=== PATIENT | female | born 1940 | race Caucasian/White ===

== ENCOUNTER 2017-08-23 16:01 | Emergency (ER) | payer MEDICARE ==
[~2017-08-23] VITALS: Ht 162.6 cm; Wt 59.0 kg
--- OUTSIDE RECORDS SUMMARY | 2017-08-23 16:04 | XMS REPORT | Summary of Care ---
Author Author NAUN DENT M.D. Organization Unknown Address Unknown Phone Unavailable Care Team Providers Care Air Traffic Control Specialist Name Role Phone NAUN DENT M.D. Unavailable Unavailable Unavailable Unavailable Functional Status Name Dates Details Functional status health issues are not documented Status: Name Dates Details Cognitive status health issues are not documented Status: Problems Name Dates Details Femur fracture, right (821.00, S72.91XA) Status: Active Ankle pain (719.47, M25.579) Status: Active Medications Name Dates Details Gabapentin 300 MG Oral Capsule TAKE 1 CAPSULE AT BEDTIME. Quantity: 30 JAILENE Holland, NAUN * Start : 15-Mar-2017 Active Allergies and Adverse Reactions Name Dates Details Allergy history not documented Status: Procedures Procedure Dates Details [U] XRAY HIP UNILATERAL MIN 2 VWS RIGHT [id number] Date: 13-Jun-2017 Immunization Name Dates Details Immunizations not documented Social History Name Dates Details Unknown if ever smoked Vital Signs Date Test Result Details No Known Vitals to report Results Date Description Value Details Results not documented Plan of Care Name Dates Details Planned Observations Planned Goals not documented Interventions Provided Labs/Procedures/Imaging* [U] XRAY HIP UNILATERAL MIN 2 VWS RIGHT [id number]; To Be Done: 14 Jun 2017 Instructions Name Dates Details Instructions not documented Encounters Appointment; NAUN DENT M.D. Encounter Diagnosis: Problem not documented On: 09-Jan-2017 15:30 Appointment; NAUN DENT M.D. Encounter Diagnosis: Problem not documented On: 15-Feb-2017 13:00 Appointment; NAUN DENT M.D. Encounter Diagnosis: Problem not documented On: 15-Mar-2017 13:15 Appointment; NAUN DENT M.D. Encounter Diagnosis: Problem not documented On: 14-Jun-2017 13:15
== END 2017-08-23 17:12 | disposition left against medical advice (07) ==
LOC: ER 16:01
DX: R06.02 Shortness of breath (principal)

== ENCOUNTER 2018-01-08 14:07 | Observation (INO) | payer MEDICARE ==
[~2018-01-08] VITALS: Ht 162.6 cm; Wt 67.6 kg
[2018-01-08] MEDS ORDERED: ARICEPT5 MG PO (16:52)
[2018-01-08] MEDS ORDERED: GABAPENTIN300 MG PO (16:52)
[2018-01-08] MEDS ORDERED: Eliquis PO (16:52)
[2018-01-08] MEDS ORDERED: ATORVASTATIN CA20 MG PO (16:52)
[2018-01-08] MEDS ORDERED: CARVEDILOL12.5 MG PO (16:52)
[2018-01-08] MEDS ORDERED: FUROSEMIDE40 MG PO (16:52)
[2018-01-08] MEDS ORDERED: AMIODARONE HCL200 MG PO (16:52)
[2018-01-08] MEDS ORDERED: ASPIRIN81 MG PO (16:52)
[2018-01-08] MEDS ORDERED: SERTRALINE HCL100 MG PO (16:52)
[2018-01-08] MEDS ORDERED: ASPIRIN ENTERI325 MG PO (16:52)
[2018-01-08] MEDS ORDERED: LEVOCETIRIZINE D5 MG PO (16:52)
[2018-01-08] MEDS ORDERED: PRILOSEC OTC20 MG PO (16:52)
[2018-01-08] MEDS ORDERED: OMEPRAZOLE40 MG PO (16:52)
[2018-01-08] MEDS ORDERED: SODIUM CHLORIDE FLUSH 10 ML SYR INJ PRN (18:45)
[2018-01-09] VITALS (8 sets, daily range): BP systolic 106–146; BP diastolic 59–68
[2018-01-09] MEDS ORDERED: NON-FORMULARY MEDICATION (Omeprazole Magnesium (Prilosec Otc) 20 MG) PO SCH (09:00)
[2018-01-09] MEDS ORDERED: ASPIRIN 81 MG CHEW TAB PO SCH (09:00)
[2018-01-09] MEDS ORDERED: APIXABAN 5 MG TABLET PO SCH (09:00)
[2018-01-09] MEDS: CARVEDILOL 12.5 MG TAB PO SCH ×2 (09:42→17:34)
[2018-01-09] MEDS: ASPIRIN 325 MG TAB EC PO SCH (09:42)
[2018-01-09] MEDS: AMIODARONE HCL 200 MG TAB PO SCH ×2 (09:42→17:34)
[2018-01-09] MEDS: FUROSEMIDE 40 MG TAB PO SCH (09:43)
[2018-01-09] MEDS: APIXAB 2.5 MG TABLET PO SCH ×2 (09:43→17:34)
[2018-01-09] MEDS: GABAPENTIN 300 MG CAP PO SCH (09:43)
[2018-01-09] MEDS: PANTOPRAZOLE SOD 40 MG TABEC PO SCH (09:43)
[2018-01-09] MEDS ORDERED: DEXTROSE 50% SYRINGE 50 ML IV PRN (18:00)
--- NOTE | 2018-01-09 18:36 | History and Physical ---
This is a 77-year-old female who comes in with back pain. HISTORY OF PRESENT ILLNESS: Ms. Jie Beaver, a 77-year-old female with a history of CHF, history of hypertension, history of debility and chronic pain was in her usual state of health until the patient started to have pain in the back. The intensity is 8 out of 10 to 9 out of 10. The patient's daughter apparently gave her 2 [place] and came into the emergency room and was found to have pinpoint pupils. Her CT scan did show L4, L5 spondylosis with probable stenosis, and the patient was admitted for observation. PAST MEDICAL HISTORY: History of hypertension, history of diabetes mellitus, history of hyperlipidemia, history of dementia, history of congestive heart failure, history of hypothyroidism. The patient has had a dual-chamber pacemaker, AICD placement, and also right femur surgery. HOME MEDICATIONS: Carvedilol 12.5 mg, amiodarone 100 mg once a day, furosemide 40 mg mg once a day, aspirin 325 mg, atorvastatin 40 mg, gabapentin 300 mg, omeprazole 40 mg, sertraline 100 mg, 5 mg, donepezil 10 mg and Eliquis 2.5 mg twice a day. SOCIAL HISTORY: No ETOH, no IV drug abuse. She lives with daughter who is the primary packaging technician. REVIEW OF SYSTEMS: Negative for chest pain. Positive for some shortness of breath. No nausea, vomiting, diarrhea, no constipation, no rectal bleeding. No hematochezia or hematemesis. Muscular back pain as mentioned above. No diplopia. No blurry vision. PHYSICAL EXAMINATION GENERAL: The patient is alert and oriented x3. HEENT: Normocephalic, atraumatic. Sclerae has no icterus. NECK: No JVD present. Decreased range of motion in the cervical spine, otherwise normal. CARDIOVASCULAR: S1 and S2 normal. Positive for S3. ABDOMEN: Nontender, nondistended. EXTREMITIES: No clubbing or cyanosis. Positive for trace edema. BACK: Tenderness in the L5-S1 area and also L4 and L5 area. : Negative. SKIN: Normal. NEUROLOGIC: Mood is normal at this time. EKG was normal. CT scan showed, as mentioned above, L5-S1 spondylosis and also severe atherosclerosis of the abdominal aorta. She also had a 3.6 cm cystic lesion to the right pelvis , and also the patient had broad-based disk bulge of L4, L5 and L5, S1 areas. The patient also had a C spine which showed significant C4 to C5 and C7, T1. The patient was hypoxic when she came into the emergency room. ASSESSMENT: 1. Hypoxia. 2. Herniated disk at the lumbar level. 3. Essential hypertension. 4. History of opioid intake. 5. Degenerative joint disease. PLAN: Monitor her blood pressure and O2 status which has been normalized again. Restart her home medications. Continue to monitor the patient. The patient will be discharged probably tomorrow if all labs check out to be normal. For further information, look on the chart. Job#: [id number] SEE
[2018-01-09] MEDS: INSULIN REGULAR, HUMAN 100 UNIT/1 ML 3ML VIAL SQ SCH (20:41)
[2018-01-09] MEDS ORDERED: DONEPEZIL HCL 5 MG TAB PO SCH (21:00)
[2018-01-09] MEDS ORDERED: ATORVASTATIN 40 MG TAB PO SCH (21:00)
[2018-01-09] MEDS ORDERED: LORATADINE 10 MG TAB PO SCH (21:00)
[2018-01-09] MEDS ORDERED: NON-FORMULARY MEDICATION (Levocetirizine Dihydrochloride 5 MG) PO SCH (21:00)
[2018-01-09] MEDS ORDERED: ATORVASTATIN 20 MG TAB PO SCH (21:00)
[2018-01-09] MEDS ORDERED: SERTRALINE HCL 100 MG TAB PO SCH (21:00)
[2018-01-10 00:20] VITALS: BP 108/63
[2018-01-10 05:47] LABS: BASOPHILS % 0.3 % (0.0-1.0); EOSINOPHILS # (AUTO) 0.2 (0.0-0.4); EOSINOPHILS % 1.9 % (0.0-6.0); HEMATOCRIT 31.1 % (34.2-44.1); HEMOGLOBIN 9.3 g/dL (12.0-16.0); LYMPHOCYTES # (AUTO) 2.1 (1.0-3.2); MEAN CORPUSCULAR HGB CONC 29.9 g/dL (31-35); MEAN CORPUSCULAR VOLUME 80.4 fL (81-99); MONOCYTES # (AUTO) 1.1 (0.2-0.8); MONOCYTES % 11.1 % (4.4-11.3); NEUTROPHILS # (AUTO) 6.6 (2.1-6.9); NEUTROPHILS % 65.3 % (38.7-80.0); PLATELET COUNT 314 x10e3/uL (140-360); RED BLOOD COUNT 3.87 x10e6/uL (3.6-5.1); RED CELL DISTRIBUTION WIDTH 19.5 % (11.7-14.4)
[2018-01-10 05:51] VITALS: BP 136/72
[2018-01-10 06:13] LABS: ANION GAP 15.5 mmol/L (8-16); CALCIUM 9.5 mg/dL (8.4-10.2); CREATININE, SERUM 1.18 mg/dL (0.57-1.11); MAGNESIUM 1.6 MG/DL (1.3-2.1); POTASSIUM 3.5 mmol/L (3.5-5.1)
[2018-01-10 08:00] VITALS: BP 136/62
[2018-01-10 09:10] VITALS: BP 136/62
[2018-01-10] MEDS: PANTOPRAZOLE SOD 40 MG TABEC PO SCH (09:11)
[2018-01-10] MEDS: AMIODARONE HCL 200 MG TAB PO SCH (09:11)
[2018-01-10] MEDS: APIXAB 2.5 MG TABLET PO SCH (09:11)
[2018-01-10] MEDS: CARVEDILOL 12.5 MG TAB PO SCH (09:11)
[2018-01-10] MEDS: GABAPENTIN 300 MG CAP PO SCH (09:11)
[2018-01-10] MEDS: FUROSEMIDE 40 MG TAB PO SCH (09:11)
[2018-01-10] MEDS: ASPIRIN 325 MG TAB EC PO SCH (09:11)
[2018-01-10] MEDS: INSULIN REGULAR, HUMAN 100 UNIT/1 ML 3ML VIAL SQ SCH ×2 (09:12→11:30)
[2018-01-10 12:00] VITALS: BP 118/65
== END 2018-01-10 13:00 | disposition home or self-care (01) ==
LOC: FSED 14:07 → ERHOLD 19:13 → MED/SURG3 01-09 00:40
PROVIDERS: ADMIT Family Medicine; ATTEND Family Medicine
DX: M51.26 Other intervertebral disc displacement, lumbar region (principal); M47.817 Spondylosis without myelopathy or radiculopathy, lumbosacral region; R09.02 Hypoxemia; I11.0 Hypertensive heart disease with heart failure; I50.9 Heart failure, unspecified; E11.9 Type 2 diabetes mellitus without complications; E78.5 Hyperlipidemia, unspecified; F03.90 Unspecified dementia, unspecified severity, without behavioral disturbance, psychotic disturbance, mood disturbance, and anxiety; Z95.810 Presence of automatic (implantable) cardiac defibrillator
CPT/HCPCS: 36415 ×2; 70450; 72125; 72131; 73502; 80048; 82948 ×2; 83735; 85025; 99284; G0378 ×3; S0164